=== PATIENT | male | born 1945 | race Caucasian/White ===

== ENCOUNTER → 2017-03-24 | Day surgery (SDC) | payer MEDICARE ==
[~2017-03-24] VITALS: Ht 190.5 cm; Wt 104.3 kg
[~2017-03-24] MED LIST: 0.9% Sodium Chloride 1,000 ML IV PRN; ASPI-973 PO; ATOR80TA PO; BACI1CAP6 PO; CHOL5000 PO; FLUT15.88 NS; GLUC-7 PO; LISI-567 PO; LISI30TA5 PO; LORA10CA PO; MAGN400T4 PO; METO25TA6 PO; MULT-666 PO; SAW500CA11 PO; Sodium Chloride LOK Flush 10 mL Syringe IV PRN; fentaNYL-PF 50 mCg/mL 2 mL Inj IVPUSH PRN
[2017-03-24 14:15] VITALS: BP 153/86; PULSE 54; RESP 14; O2SAT 95
[2017-03-24 15:44] VITALS: BP 140/78; PULSE 57; RESP 17; O2SAT 98
--- NOTE | 2017-03-24 15:59 | ENDO ---
[address] [address] ENDOSCOPY PROCEDURE PATIENT: ROSALIO YBARRA : 1945 MR#: [id number] ADMIT: 03/24/2017 JOB ID: [id number] DATE: 03/24/2017 PRIMARY PROVIDER: Shalini Murray MD PROCEDURE: Colonoscopy. INDICATIONS: A 72-year-old male with a personal history of colon polyps. EQUIPMENT: PCF H 180 AL. SEDATION: Versed 4 mg and 100 mcg fentanyl. COMPLICATIONS: None identified. BOWEL PREPARATION: Suboptimal in most locations requiring copious amounts of irrigation and suction for an acceptable exam. PROCEDURE INFORMATION: After the risks and benefits were explained, written and verbal informed consent was obtained. The patient was brought into the endoscopy suite and placed into the left lateral decubitus position. Sedation was achieved as above. Digital rectal examination accomplished. Mild internal hemorrhoids noted. The scope was introduced into the rectum and advanced to the cecum as identified by the appendiceal orifice and ileocecal valve. The scope was slowly withdrawn to carefully examine the mucosa for any defects or lesions. Multiple direct views were made through the dentate line for exclusion of pathology. The colon was decompressed and the scope removed from the patient, who tolerated the procedure well. FINDINGS: There was some mild diverticulosis in the left colon. The patient had a lengthy tortuous colon. Challenging navigation. Within the limitations of bowel prep, no significant polyps were appreciated throughout. The mucosa was aggressively irrigated throughout to provide for an acceptable exam. ENDOSCOPIC DIAGNOSIS: 1. Diverticulosis. 2. Visually unremarkable colonoscopy to cecum. RECOMMENDATIONS: Repeat colonoscopy in five years' time with an extra day of prep in advance of the official bowel prep.
[2017-03-24 16:02] VITALS: BP 139/75; PULSE 57; RESP 12; O2SAT 98
== END | disposition home or self-care (01) ==
LOC: END 01:00
PROVIDERS: ATTEND Internal Medicine Gastroenterology
DX: Z12.11 Encounter for screening for malignant neoplasm of colon (principal); K57.30 Diverticulosis of large intestine without perforation or abscess without bleeding; Z86.010 Personal history of colon polyps; I25.10 Atherosclerotic heart disease of native coronary artery without angina pectoris; E78.5 Hyperlipidemia, unspecified; I10 Essential (primary) hypertension; G47.33 Obstructive sleep apnea (adult) (pediatric); Z95.1 Presence of aortocoronary bypass graft; G25.81 Restless legs syndrome; Z79.82 Long term (current) use of aspirin
CPT/HCPCS: 99153; G0105; G0500; J2250; J3010; J7030